=== PATIENT | female | born 1990 | race Caucasian/White ===

== ENCOUNTER 2018-10-26 20:49 | Emergency (ER) | payer MEDICAID, OTHER ==
[~2018-10-26] VITALS: Ht 162.6 cm; Wt 100.0 kg
[2018-10-26] MEDS ORDERED: SULFAMETHOX/TRIMETH DS 800-160 MG/TABLET PO ONE (21:15)
[2018-10-26] MEDS ORDERED: IBUPROFEN 800 MG TABLET PO ONE (21:15)
[2018-10-26] MEDS ORDERED: CEPHALEXIN MONOHYDRATE 500 MG CAPSULE PO ONE (21:15)
[2018-10-26] MEDS ORDERED: TraMADol HCL 50 MG TABLET PO ONE (21:15)
[2018-10-26 21:25] VITALS: BP 121/98
== END 2018-10-26 21:40 | disposition home or self-care (01) ==
LOC: EMS 20:50
DX: L02.211 Cutaneous abscess of abdominal wall (principal)

== ENCOUNTER 2021-12-20 09:14 | Emergency (ER) | payer OTHER ==
[~2021-12-20] VITALS: Ht 162.6 cm; Wt 104.5 kg
[2021-12-20] MEDS ORDERED: METHOCARBAMOL 500 MG TABLET PO ONE (11:30)
[2021-12-20] MEDS ORDERED: KETOROLAC TROMETHAMINE 30 MG/ML VIAL IM ONE (11:30)
[2021-12-20] MEDS ORDERED: LIDOCAINE 5% TRANSDERMAL PATCH TD ONE (11:30)
[2021-12-20] MEDS ORDERED: NAPR-1025 PO (13:26)
[2021-12-20] MEDS ORDERED: METH-812 PO (13:26)
[2021-12-20] MEDS ORDERED: LIDO700A15 TP (13:26)
[2021-12-20 13:34] VITALS: BP 129/72
== END 2021-12-20 13:43 | disposition home or self-care (01) ==
LOC: EMS 09:18
DX: M54.6 Pain in thoracic spine (principal)
CPT/HCPCS: 72070; 96372; 99283; J1885

== ENCOUNTER 2022-02-01 17:56 | Emergency (ER) | payer OTHER ==
[~2022-02-01] VITALS: Ht 162.6 cm; Wt 100.0 kg
[~2022-02-01 17:56] MED LIST: LIDO700A15 TP; METH-812 PO; NAPR-1025 PO
[2022-02-01 18:46] VITALS: BP 114/60
[2022-02-01] MEDS ORDERED: ONDANSETRON HCL 4 MG/2 ML VIAL IVP ONE (19:45)
[2022-02-01] MEDS ORDERED: SODIUM CHLORIDE 0.9% 1,000 ML IV ONE (19:45)
[2022-02-01] MEDS ORDERED: ACETAMINOPHEN 500 MG TABLET PO ONE (19:45)
[2022-02-01] MEDS ORDERED: ONDA-104 PO (20:44)
[2022-02-01 20:57] LABS: INFLUENZA TYPE A NEGATIVE FOR TYPE A (NEGATIVE); INFLUENZA TYPE B NEGATIVE FOR TYPE B (NEGATIVE)
== END 2022-02-01 21:24 | disposition home or self-care (01) ==
LOC: EMS 18:19
DX: B34.9 Viral infection, unspecified (principal)
CPT/HCPCS: 87804; 96361; 96374; 99283; J2405; J7030

== ENCOUNTER 2023-06-26 15:34 | Emergency (ER) | payer OTHER ==
[~2023-06-26] VITALS: Ht 162.6 cm; Wt 102.7 kg
[~2023-06-26 15:34] MED LIST changes: +ONDA-104 PO
[2023-06-26 15:40] VITALS: TEMP 97.4
[2023-06-26] MEDS ORDERED: SODIUM CHLORIDE 0.9% 1,000 ML IV ONE (16:00)
[2023-06-26] MEDS ORDERED: ONDANSETRON HCL 4 MG/2 ML VIAL IVP ONE (16:00)
[2023-06-26 16:15] LABS: BASOPHILS % (AUTO) 0.4 % (0.0-2.0); EOSINOPHILS % (AUTO) 1.3 % (1.0-6.0); HEMATOCRIT 39.3 % (36-46); HEMOGLOBIN 13.3 g/dL (12.0-16.0); LYMPHOCYTES # (AUTO) 1.7 K/uL (1.0-4.8); LYMPHOCYTES % (AUTO) 25.3 % (22.0-44.0); MEAN CORPUSCULAR HGB CONC 33.9 G/dL (31.0-37.0); MEAN CORPUSCULAR VOLUME 92 fL (80-100); MONOCYTES # (AUTO) 0.4 K/uL (0.1-1.0); MONOCYTES % (AUTO) 6.1 % (2.0-9.0); NEUTROPHILS # (AUTO) 4.4 K/uL (1.8-7.7); NEUTROPHILS % (AUTO) 66.9 % (40.0-70.0); PLATELET COUNT (AUTO) 231 K/uL (150-450); RED CELL DISTRIBUTION WIDTH 13.3 % (11.5-14.5)
[2023-06-26 16:24] LABS: ANION GAP 9 mmol/L (8-16); CALCIUM, TOTAL 8.5 mg/dL (8.8-10.5); CARBON DIOXIDE 29 mmol/L (22-29); CHLORIDE 102 mmol/L (98-107); CREATININE 0.75 mg/dL (0.60-1.30); GLOMERULAR FILTR. RATE CALC > 60 mL/min (>60); GLUCOSE,RANDOM 113 mg/dL (70-110); POTASSIUM 3.8 mmol/L (3.5-5.1); SODIUM SERUM 140 mmol/L (136-145)
[2023-06-26 16:36] LABS: HCG,QUANTITATIVE < 1 mIU/mL (0-6)
[2023-06-26 17:10] VITALS: BP 108/68; PULSE 61; RESP 16
== END 2023-06-26 18:39 | disposition home or self-care (01) ==
LOC: EMS 15:42
DX: R42 Dizziness and giddiness (principal); R11.0 Nausea
CPT/HCPCS: 99283; 96374; 96361; 80048; 84702; 85025; 36415; J2405; J7030